=== PATIENT | male | born 1940 | race Caucasian/White ===

== ENCOUNTER 2019-08-06 21:04 | Emergency (ER) | payer OTHER ==
[~2019-08-06] VITALS: Ht 167.6 cm; Wt 74.4 kg
[~2019-08-06 21:04] MED LIST: TAMS0.4C36 PO
[2019-08-06 22:15] LABS: Basophils # (auto) 0.1 10 ^3/uL (0-0.2); Basophils % (auto) 0.7 % (0.0-2.0); Eosinophils # (auto) 0 10 ^3/uL (0-0.8); Eosinophils % (auto) 0.2 % (0.0-7.0); Hematocrit 42.1 % (41.0-53.0); Lymphocytes # (auto) 0.6 10 ^3/uL (0.4-5.4); Lymphocytes % (auto) 5.3 % (10.0-50.0); Mean Corpuscular Hemoglobin 31.1 pg (28.0-32.0); Mean Corpuscular Hgb Conc. 33.2 g/dL (32.0-36.0); Mean Corpuscular Volume 93.6 fL (80.0-100.0); Monocytes # (auto) 0.6 10 ^3/uL (0-1.3); Monocytes % (auto) 5.4 % (0.0-12.0); Neutrophils # (auto) 10.5 10 ^3/uL (1.6-8.6); Neutrophils % (auto) 88.4 % (37.0-80.0); Platelet Count (auto) 127 10^3/uL (140-450); Red Cell Distribution Width 15.5 % (11.8-14.3); White Blood Cell 11.9 10^3/uL (4.4-10.8)
[2019-08-06 22:32] LABS: INR 1.01 (0.9-1.15); Partial Thromboplastin Time 23.9 sec (23.64-32.05)
[2019-08-06 22:35] LABS: Albumin 4.3 g/dL (3.4-5.0); Anion Gap 6 (5-15); Blood Urea Nitrogen 28 mg/dL (7-18); Calcium 9.4 mg/dL (8.5-10.1); Carbon Dioxide 33 mmol/L (21-32); Chloride 100 mmol/L (98-107); Glucose 117 mg/dL (74-106); Potassium 3.6 mmol/L (3.5-5.1); Sodium 139 mmol/L (136-145)
[2019-08-06 22:41] LABS: Alanine Aminotransferase 23 U/L (16-61); Alkaline Phosphatase 45 U/L (45-117); Aspartate Aminotransferase 28 U/L (15-37); Bilirubin, Total 0.6 mg/dL (0.2-1.0); GFR African American 93 mL/min; GFR Non-African American 77 mL/min; Total Protein 8.1 g/dL (6.4-8.2)
[2019-08-07] MEDS ORDERED: SODIUM CHLORIDE 0.9% 500 ML IV ONE (00:15)
[2019-08-07] MEDS ORDERED: MORPHINE SULFATE 4 MG/ML SYR/VIAL IV ONE (01:45)
[2019-08-07] MEDS ORDERED: PIPERACILLIN-TAZOB 3.375GM 100 ML IV ONE (14:00)
[2019-08-07] MEDS ORDERED: ACETAMINOPHEN 650 mg PER 20 mL UD GT ONE (14:15)
[2019-08-07 14:32] VITALS: BP 132/83
== END 2019-08-07 14:35 | disposition short-term general hospital (02) ==
LOC: EDBD 21:04 → ER 21:05
DX: R06.09 Other forms of dyspnea (principal); J38.6 Stenosis of larynx; D02.0 Carcinoma in situ of larynx; I10 Essential (primary) hypertension; I25.2 Old myocardial infarction; I25.10 Atherosclerotic heart disease of native coronary artery without angina pectoris; Z20.828 Contact with and (suspected) exposure to other viral communicable diseases
CPT/HCPCS: 36415; 70490; 71045; 80053; 82728; 83605; 83880; 84484; 85025; 85379; 85610; 85730; 87040; 87070; 87077; 87086; 87186; 87804; 87880; 93005; 96365; 96375; 99285; J2270; J2543; U0003

== ENCOUNTER 2020-03-06 18:38 | Emergency (ER) | payer OTHER ==
[~2020-03-06] VITALS: Ht 170.2 cm; Wt 71.7 kg
[2020-03-06 20:09] LABS: Basophils # (auto) 0 10 ^3/uL (0-0.2); Basophils % (auto) 0.2 % (0.0-2.0); Eosinophils # (auto) 0 10 ^3/uL (0-0.8); Hematocrit 34.8 % (41.0-53.0); Hemoglobin 11.3 g/dL (13.5-17.5); Lymphocytes # (auto) 0.5 10 ^3/uL (0.4-5.4); Lymphocytes % (auto) 2.7 % (10.0-50.0); Mean Corpuscular Hemoglobin 31.3 pg (28.0-32.0); Mean Corpuscular Hgb Conc. 32.4 g/dL (32.0-36.0); Mean Corpuscular Volume 96.7 fL (80.0-100.0); Monocytes % (auto) 5.2 % (0.0-12.0); Neutrophils # (auto) 17.9 10 ^3/uL (1.6-8.6); Neutrophils % (auto) 91.9 % (37.0-80.0); Platelet Count (auto) 176 10^3/uL (140-450); Red Cell Distribution Width 14.2 % (11.8-14.3); White Blood Cell 19.5 10^3/uL (4.4-10.8)
[2020-03-06 20:29] LABS: Albumin 3.1 g/dL (3.4-5.0); Calcium 9.2 mg/dL (8.5-10.1); Potassium 4.2 mmol/L (3.5-5.1)
[2020-03-06 20:32] LABS: BUN/Creatinine Ratio 26.4; Bilirubin, Total 0.6 mg/dL (0.2-1.0); Total Protein 6.9 g/dL (6.4-8.2)
[2020-03-06] MEDS ORDERED: MORPHINE SULF INJ 2 MG/ML SYRINGE 1ML IV ONE ×2 (20:45→23:30)
[2020-03-06] MEDS ORDERED: ONDANSETRON HCL 4 MG/2 ML VIAL IV ONE (20:45)
[2020-03-06] MEDS ORDERED: SODIUM CHLORIDE 0.9% 1,000 ML IV ONE (23:30)
[2020-03-06] MEDS ORDERED: metroNIDAZOLE 500MG/100ML 100 ML IV ONE (23:30)
[2020-03-06] MEDS ORDERED: cefTRIAXone 1GM/50ML D5W 50 ML IV ONE (23:30)
[2020-03-07] MEDS ORDERED: MORPHINE SULF INJ 2 MG/ML SYRINGE 1ML ONE (04:19)
[2020-03-07] MEDS ORDERED: MORPHINE SULF INJ 2 MG/ML SYRINGE 1ML IV ONE (04:30)
[2020-03-07 04:55] VITALS: BP 175/88
== END 2020-03-07 05:20 | disposition short-term general hospital (02) ==
LOC: ER 18:38 → EDBD 18:38 → ER 03-07 05:20
DX: K94.23 Gastrostomy malfunction (principal); D72.829 Elevated white blood cell count, unspecified; J90 Pleural effusion, not elsewhere classified; C15.9 Malignant neoplasm of esophagus, unspecified; I10 Essential (primary) hypertension; I25.2 Old myocardial infarction; Z20.828 Contact with and (suspected) exposure to other viral communicable diseases
CPT/HCPCS: 36415; 74176; 80053; 85025; 87077; 87186; 87205; 87426; 96365; 96375; 96376; 99285; C9803; J0696; J2270; J2405; J3490; J7030; U0003

== ENCOUNTER 2020-11-29 11:55 | Emergency (ER) | payer OTHER ==
[~2020-11-29] VITALS: Ht 170.2 cm; Wt 78.5 kg
[2020-11-29] MEDS ORDERED: ONDANSETRON HCL 4 MG/2 ML VIAL IV ONE (13:00)
[2020-11-29] MEDS ORDERED: SODIUM CHLORIDE 0.9% 1,000 ML IV ONE ×2 (13:00→18:15)
[2020-11-29] MEDS ORDERED: PIPERACILLIN-TAZOB 3.375GM 100 ML IV ONE (14:15)
[2020-11-29 14:33] LABS: Basophils # (auto) 0 10 ^3/uL (0-0.2); Basophils % (auto) 0.2 % (0.0-2.0); Eosinophils # (auto) 0 10 ^3/uL (0-0.8); Hematocrit 37.4 % (41.0-53.0); Hemoglobin 12.5 g/dL (13.5-17.5); Lymphocytes # (auto) 0.2 10 ^3/uL (0.4-5.4); Lymphocytes % (auto) 2.8 % (10.0-50.0); Mean Corpuscular Hemoglobin 32.6 pg (28.0-32.0); Mean Corpuscular Hgb Conc. 33.4 g/dL (32.0-36.0); Mean Corpuscular Volume 97.4 fL (80.0-100.0); Monocytes # (auto) 0.7 10 ^3/uL (0-1.3); Monocytes % (auto) 8.6 % (0.0-12.0); Neutrophils # (auto) 7.3 10 ^3/uL (1.6-8.6); Neutrophils % (auto) 88.4 % (37.0-80.0); Nucleated Red Blood Cells % 0.3 %; Red Blood Cells 3.84 10^6/uL (4.5-5.90); Red Cell Distribution Width 13.6 % (11.8-14.3); White Blood Cell 8.2 10^3/uL (4.4-10.8)
[2020-11-29 14:53] LABS: Albumin 3.6 g/dL (3.4-5.0); Anion Gap 6 (5-15); Blood Urea Nitrogen 26 mg/dL (7-18); Calcium 9.1 mg/dL (8.5-10.1); Carbon Dioxide 27 mmol/L (21-32); Chloride 104 mmol/L (98-107); Glucose 85 mg/dL (74-106); Magnesium 2.6 mg/dL (1.6-2.6); Potassium 4.1 mmol/L (3.5-5.1); Sodium 137 mmol/L (136-145)
[2020-11-29 15:00] LABS: Alanine Aminotransferase 25 U/L (16-61); Alkaline Phosphatase 55 U/L (45-117); Aspartate Aminotransferase 26 U/L (15-37); Bilirubin, Total 1.1 mg/dL (0.2-1.0); GFR African American 101 mL/min; GFR Non-African American 84 mL/min; Total Protein 6.7 g/dL (6.4-8.2)
[2020-11-29] MEDS ORDERED: SODIUM CHLORIDE 0.9% 500 ML IV ONE (18:30)
[2020-11-29 19:00] VITALS: BP 124/65
== END 2020-11-30 01:12 | disposition home or self-care (01) ==
LOC: ER 11:55 → EDBD 11:55 → ER 11-30 01:12
DX: J69.0 Pneumonitis due to inhalation of food and vomit (principal); R06.02 Shortness of breath; I25.10 Atherosclerotic heart disease of native coronary artery without angina pectoris; I10 Essential (primary) hypertension; I25.2 Old myocardial infarction; Z20.822 Contact with and (suspected) exposure to COVID-19; Z85.818 Personal history of malignant neoplasm of other sites of lip, oral cavity, and pharynx; Z93.1 Gastrostomy status; Z79.899 Other long term (current) drug therapy; Z98.890 Other specified postprocedural states
CPT/HCPCS: 36415; 71045; 80053; 83735; 83880; 84484; 85025; 87040; 87426; 93005; 96365; 99285; J2543

== ENCOUNTER 2021-03-04 21:04 | Inpatient (IN) | payer OTHER ==
[~2021-03-04] VITALS: Ht 185.4 cm; Wt 68.0 kg
[2021-03-04] MEDS ORDERED: IOHEXOL 350 MG/ML 100ML IJ ONE (23:37)
[2021-03-05 00:20] LABS: Hematocrit 30.2 % (41.0-53.0); Hemoglobin 10.3 g/dL (13.5-17.5); Mean Corpuscular Hemoglobin 32.3 pg (28.0-32.0); Mean Corpuscular Hgb Conc. 34.1 g/dL (32.0-36.0); Mean Corpuscular Volume 94.7 fL (80.0-100.0); Red Blood Cells 3.19 10^6/uL (4.5-5.90); Red Cell Distribution Width 14.1 % (11.8-14.3); White Blood Cell 3.5 10^3/uL (4.4-10.8)
[2021-03-05 00:26] LABS: Basophils % (manual) 0 (0.0-2.0); Blast Cells 0; Metamyelocytes % 0; Myelocytes % 0; Promyelocytes % 0; Reactive Lymphocytes 0
[2021-03-05 00:46] LABS: Urine Amorphous Crystal FEW /hpf (None Seen); Urine Bacteria NONE SEEN /hpf (None Seen); Urine Blood Negative /uL (Negative); Urine Mucus FEW (None Seen); Urine Specific Gravity 1.043 (1.001-1.035); Urine WBC 74 /hpf (0 - 3); Urine WBC Clumps PRESENT /hpf (None Seen)
[2021-03-05 01:00] LABS: Albumin 2.9 g/dL (3.4-5.0); BUN/Creatinine Ratio 30.1; Calcium 8.4 mg/dL (8.5-10.1)
[2021-03-05] MEDS ORDERED: CLINDAMYCIN 600MG IV 50 ML IV ONE (01:00)
[2021-03-05] MEDS ORDERED: cefTRIAXone 1GM/50ML D5W 50 ML IV ONE (01:00)
[2021-03-05 01:11] LABS: Bilirubin, Total 0.5 mg/dL (0.2-1.0); Potassium 4.5 mmol/L (3.5-5.1); Total Protein 6.5 g/dL (6.4-8.2)
[2021-03-05] MEDS ORDERED: SODIUM CHLORIDE 0.9% 1,000 ML IV ONE (01:15)
[2021-03-05 01:18] LABS: Band Neutrophils % (manual) 16; Eosinophils % (manual) 2 (0-7); Lymphocytes % (manual) 25 (10.0-50.0); Monocytes % (manual) 14 (0-12)
[2021-03-05] MEDS ORDERED: ONDANSETRON HCL 4 MG/2 ML VIAL IV PRN (03:45)
[2021-03-05] MEDS ORDERED: D5W/SOD CHLO 0.9% 1,000 ML IV SCH (03:45)
[2021-03-05] MEDS ORDERED: TEMAZEPAM 15 MG CAP PO PRN (03:45)
[2021-03-05] MEDS ORDERED: ACETAMINOPHEN 325 MG TAB PO PRN (03:45)
[2021-03-05] MEDS ORDERED: CLINDAMYCIN 600MG IV 50 ML IV SCH (06:00)
[2021-03-05 06:09] VITALS: BP 139/82
[2021-03-05] MEDS ORDERED: PANTOPRAZOLE 40 MG/10 ML VIAL INJ IV SCH (10:00)
[2021-03-05] MEDS ORDERED: RIVAROXABAN 20 MG TAB PO SCH (18:00)
[2021-03-05] MEDS ORDERED: MONTELUKAST SODIUM 10 MG TAB PO SCH (22:00)
[2021-03-05] MEDS ORDERED: ATORVASTATIN 20 MG TAB PO SCH (22:00)
[2021-03-05] MEDS ORDERED: cefTRIAXone 1GM/50ML D5W 50 ML IV SCH (22:00)
== END 2021-03-06 06:41 | disposition home or self-care (01) | DRG 179 ==
LOC: EDUNIT# 21:04 → EDBD 21:04 → ER 21:07 → OVERFLOW 03-05 03:37
PROVIDERS: ADMIT Nurse Practitioner; ATTEND Nurse Practitioner
DX: J69.0 Pneumonitis due to inhalation of food and vomit (principal); I10 Essential (primary) hypertension; Z80.42 Family history of malignant neoplasm of prostate; Z20.822 Contact with and (suspected) exposure to COVID-19; I25.10 Atherosclerotic heart disease of native coronary artery without angina pectoris; Z85.01 Personal history of malignant neoplasm of esophagus; Z92.3 Personal history of irradiation; Z99.81 Dependence on supplemental oxygen
CPT/HCPCS: 36415; 71045; 80053; 81001; 83605; 83690; 83880; 84484; 85007; 85027; 87426; 96361; 96365; 96367; G0378; J0696; J3490; J7042

== ENCOUNTER 2025-02-21 19:37 | Emergency (ER) | payer OTHER ==
[~2025-02-21] VITALS: Ht 172.7 cm; Wt 79.5 kg
[~2025-02-21 19:37] MED LIST changes: -TAMS0.4C36 PO; +TAMS0.4C39 PO
[2025-02-21 19:40] VITALS: BP 118/70; RESP 20; TEMP 98.2; O2SAT 94
[2025-02-21 19:41] VITALS: PULSE 90
--- NOTE | 2025-02-21 20:19 | ED.PDOC ---
History of Present Illness HPI Comments 84-year-old male who came to ER via EMS for shortness of breath. He has history of hypertension, esophageal cancer, multiple myeloma, status post G-tube, cardiac stents. On home oxygen 3 L/min. Patient has been complaining of shortness of breath, chest congestion since yesterday. Denies any acute chest pain or fever. Was saturating 94% upon arrival REVIEW OF SYSTEMS: General: No weakness. HEENT: No ear pain, no throat pain Cardiac: No chest pain. No palpitations. Lungs: (+) shortness of breath, (+) cough. (+) congestion GI: No Abdominal pain. No nausea. No vomiting. No diarrhea : No dysuria, frequency, or urgency. No hematuria. Musculoskeletal: No deformity. No muscle pain. No. Joint pain Skin: No rash, no itching. Neuro: No Headache, no weakness PHYSICAL EXAM: General: Awake, alert and oriented. Skin: Skin in warm, dry and intact. Appropriate color for ethnicity. HEENT: The head is normocephalic and atraumatic. Conjunctivae are clear without exudates or hemorrhage. Sclera is non-icteric. Eyelids are normal in appearance without swelling or lesions. Oral mucosa is pink and moist. Patient speaks in a soft whisper. Neck: Bilateral neck tenderness. Cardiac: Loud S1 murmur loudest over the left sternal border. No murmurs, gallops, or rubs are auscultated. Respiratory: Rales bilateral lungs, right worse than left. Abdominal: Abdomen is soft, non-tender without distention, guarding or rigidity. Bowel sounds are present and normoactive in all four quadrants. Extremities: Upper and lower extremities are atraumatic in appearance without deformity or edema. Neurological: The patient is awake, alert and oriented to person, place, and time with normal speech. Speech is clear. There is no facial asymmetry. Psychiatric: Appropriate mood and affect. Good judgement and insight. Chief Complaint: Shortness of Breath Time Seen by MD: 20:19 Primary Care Provider: Maximus Reviewed Notes: Ball Maker Notes Allergies: Coded Allergies: NO KNOWN ALLERGIES (Unverified , 04/21/14) Home Meds Reported Medications Tamsulosin Hcl (Tamsulosin Hcl) 0.4 Mg Cap, 0.4 MG PO HS for 30 Days, MG 04/23/14 Information Source: Patient Mode of Arrival: EMS Severity: Moderate Timing: Hours Past Medical History PAST MEDICAL HISTORY: CAD, Cancer, HTN, [place] Past Medical History (Other): Multiple myeloma Surgical History: PTCA Surgical History (Other): G-tube Family History Family History: Reviewed,noncontributory to illness Social History Smoker: Non-Smoker Alcohol: Denies ETOH Use Drugs: Denies Drug Use Lives In: Home Was a procedure done? Was a procedure done?: No Differential Dx Considerations may include: Differential diagnoses considered includebut arenot limited to acute pleural effusion, Bronchitis, Asthma, COPD, Pneumothorax, PE, CHF, Pulmonary HTN, Anemia, CO Poisoning, Methemoglobinemia, Hyperventilation, Metabolic Acidosis, Pulmonary Edema, Pneumonia, ACS, Pericardial Tamponade, Anxiety, other X-Ray, Labs, Meds, VS Vital Signs Date Time Temp Pulse Resp B/P (MAP) Pulse Ox O2 Delivery O2 Flow Rate FiO2 02/21/25 19:41 90 02/21/25 19:40 98.2 90 20 118/70 94 98.2 Time of 1ST Reevaluation: 20:16 Reevaluation 1ST: Unchanged Patient Education/Counseling: Need For Follow Up Family Education/Counseling: Need For Follow Up SEPSIS Sepsis Screen Date sepsis recognized/suspect: Feb 21, 2025 Time Sepsis recognized/suspect: 1939 Recent Procedure: No On Antibiotic Therapy: No Respiratory Rate >20: No Heart Rate >90: No Temp<36 C (96.8 F) or >38.3 C: No SBP <90 or MAP <65 mmHG: No New Acute Mental Status Change: No Is the patient on CPAP, BIPAP,: No Physician Orders Electrocardigram (02/21/25 19:49) Covid19 Antigen Diamond (02/21/25 ) Rapid Influenza A&B (02/21/25 20:18) Chest Two Views Routine (02/21/25 20:18) Vital Signs Date Time Temp Pulse Resp B/P (MAP) Pulse Ox O2 Delivery O2 Flow Rate FiO2 02/21/25 19:41 90 02/21/25 19:40 98.2 90 20 118/70 94 98.2 Departure 1 Departure Time of Disposition: 20:44 Impression: Primary Impression: SOB (shortness of breath) Additional Impression: Left against medical advice Disposition: 07 LEFT AWOL/ELOPED Condition: Other Comments Discussed with patient and daughter abnormal exam findings, plan for evaluation for suspected lung pathology. Despite our efforts, patient has decided to leave against medical advice. The patient has a normal mental status and full decisional capacity. Patient has been informed of the benefits of staying such as further diagnosis and treatment of possible serious etiology of the symptoms, and the risks of leaving such as , chronic pain, permanent disability or other serious adverse events which might be attributed to leaving. The patient displays clear understanding of these benefits and risks and chooses to leave. The patient is been informed also that they may return here at any time if they change their mind or need to further concerns or questions has been referred to their local medical physician for follow up HAMZAH. Critical Care Note Critical Care Time?: No Stability Stability form required: No Heart Score Heart Score: Heart Score Response (Comments) Value History N/A 0 EKG N/A 0 Age N/A 0 Risk Factors N/A 0 Troponin N/A 0 Total 0 I personally scribed for IFRAH NOBLE MD ([email or web address]) on 02/21/25 at 20:19. Electronically submitted by Hernán Andre ([employer]). I personally scribed for IFRAH NOBLE MD ([email or web address]) on 02/21/25 at 20:23. Electronically submitted by Hernán Andre ([employer]). IFRAH NOBLE MD Feb 21, 2025 20:19
--- NOTE | 2025-02-25 07:45 | ECG ---
[facility] Test Date: 2025-02-21 Test Time: 19:41:04 Pat Name: ARI SERRATO Department: ED Room: Gender: M Stay Cutter: KOFFI : 1940 Requested By: IFRAH NOBLE Order Number: [id number] Reading MD: Dank Bowers Measurements Intervals [place] Rate: 90 P: 32 WV: 169 QRS: 37 QRSD: 86 T: 25 QT: 347 QTc: 425 Interpretive Statements Sinus rhythm Probable lateral infarct, old Electronically Signed On 02-26-2025 17:40:42 PST by Dank Bowers Please click the below link to view image of tracing.
== END 2025-02-21 20:44 | disposition left against medical advice (07) ==
LOC: EDBD 19:37 → EDUNIT# 19:37 → ER 19:37
DX: R06.02 Shortness of breath (principal); I10 Essential (primary) hypertension; I25.10 Atherosclerotic heart disease of native coronary artery without angina pectoris; Z95.5 Presence of coronary angioplasty implant and graft; Z79.899 Other long term (current) drug therapy
CPT/HCPCS: 93005